=== PATIENT | male | born 1965 | race Caucasian/White ===

== ENCOUNTER 2021-04-18 08:47 | Emergency (ER) | payer OTHER ==
[2021-04-18] MEDS ORDERED: Meclizine 25 MG Tab PO ONE (09:58)
--- NOTE | 2021-04-18 10:01 | EDM.PDOC ---
ED HPI GENERAL MEDICAL PROBLEM - General Chief Complaint: Neuro Symptoms/Deficits Stated Complaint: DIZZY Time Seen by Provider: 04/18/21 09:53 Source of Information: Reports: Patient, RN Notes Reviewed History Limitations: Reports: No Limitations - History of Present Illness INITIAL COMMENTS - FREE TEXT/NARRATIVE: 56-year-old gentleman presents emergency department day complaint of dizziness states been dizzy for the last couple days he is fine if he does not move his head however if he has head movement the dizziness increases does feel little nauseated with the movement he can ambulate but he has not fallen down, feels fine at rest when he is lying down - Related Data Allergies Allergy/AdvReac Type Severity Reaction Status Date / Time No Known Allergies Allergy Verified 05/28/15 05:23 Home Meds: Home Meds Aspirin [Low Dose Aspirin EC] 81 mg PO DAILY 05/28/15 [History] Insulin Aspart [NovoLOG] 12 unit SQ TIDAC 05/28/15 [History] Insulin Glarg,Human.Rec.Analog [Lantus] 22 unit SQ BID 05/28/15 [History] Lisinopril 10 mg PO DAILY 05/28/15 [History] Rosuvastatin [Crestor] 20 mg PO DAILY 05/28/15 [History] metFORMIN [Glucophage XR] 250 mg PO BID 05/28/15 [History] Calcium Carb, Citrate/Vit D3 [Calcium + D3 ER Tablet] 1 tab PO BID 04/18/21 [History] Iron,Carbonyl/Vit C/Vit B12/Fa [Iron 100 Plus Tablet] 1 tab PO DAILY 04/18/21 [History] Past Medical History HEENT History: Reports: Cataract Other Gastrointestinal History: RUQ pain on and off since February. RAQUEL Endocrine/Metabolic History: Reports: Diabetes, Type II Hematologic History: Reports: Anemia, Iron Deficiency - Infectious Disease History Infectious Disease History: Reports: Chicken Pox - Past Surgical History GI Surgical History: Reports: Colonoscopy Social & Family History - Tobacco Use Tobacco Use Status *Q: Current Every Day Tobacco User Years of Tobacco use: 30 Packs/Tins Daily: 1 - Caffeine Use Caffeine Use: Reports: Soda - Recreational Drug Use Recreational Drug Use: No ED ROS GENERAL - Review of Systems Review Of Systems: See Below Constitutional: Reports: No Symptoms HEENT: Reports: Vertigo Respiratory: Reports: No Symptoms Cardiovascular: Reports: No Symptoms GI/Abdominal: Reports: Nausea ED EXAM, DIZZINESS - Physical Exam Exam: See Below Text/Narrative:: Head impulse test: Corrective saccades is positive when head turned to the bilateral Nystagmus: unidirectional, horizontal 0-beating nystagmus Skew deviation: grossly absent Exam Limited By: No Limitations General Appearance: Alert, WD/WN, No Apparent Distress Eye Exam: Bilateral Eye: EOMI, Normal Inspection, PERRL Ears: Normal External Exam, Normal Canal, Hearing Grossly Normal, Normal TMs Head Exam: Atraumatic, Normocephalic Vertigo: worsens with head to L, worsens with head to R, reproducible. No: reversible, constant Neck: Normal Inspection, Supple, Non-Tender, Full Range of Motion Respiratory/Chest: No Respiratory Distress, Lungs Clear, Normal Breath Sounds, No Accessory Muscle Use, Chest Non-Tender Cardiovascular: Regular Rate, Rhythm, No Murmur Neurological: Alert, Normal Mood/Affect, CN II-XII Intact, No Motor/Sensory Deficits #1 Interpretation EKG Date: 04/18/21 Time: 11:18 Rhythm: NSR [place]: Normal P-Wave: Present QRS: Normal ST-T: Normal QT: Normal Comparison: NA - No Prior EKG Course - Vital Signs Last Recorded V/S: Last Vital Signs Temp 97.7 F 04/18/21 12:42 Pulse 60 04/18/21 12:42 Resp 16 04/18/21 12:42 BP 115/72 04/18/21 12:42 Pulse Ox 99 04/18/21 12:42 - Orders/Labs/Meds Orders: Active Orders 24 hr Category Date Time Status EKG Documentation Completion [RC] ASDIRECTED Care 04/18/21 11:05 Active Peripheral IV Care [RC] . DIRECTED Care 04/18/21 11:04 Active Sodium Chloride 0.9% [Normal Saline] 1,000 ml Med 04/18/21 11:15 Active IV ASDIRECTED Sodium Chloride 0.9% [Saline Flush] Med 04/18/21 11:04 Active 10 ml FLUSH ASDIRECTED PRN Peripheral IV Insertion Adult [OM.PC] Urgent Oth 04/18/21 11:04 Ordered EKG 12 Lead [EK] Stat Ther 04/18/21 11:04 Ordered Medication Orders Sodium Chloride (Normal Saline) 1,000 mls @ 500 mls/hr IV ASDIRECTED GABRIEL Last Admin: 04/18/21 11:22 Dose: 500 mls/hr Documented by: DEMETRIA Sodium Chloride (Sodium Chloride 0.9% 10 Ml Syringe) 10 ml FLUSH ASDIRECTED PRN PRN Reason: Keep Vein Open Last Admin: 04/18/21 11:29 Dose: 10 ml Documented by: DEMETRIA Labs: Laboratory Tests 04/18/21 04/18/21 04/18/21 Range/Units 11:22 11:22 11:22 WBC 10.0 (4.5-11.0) K/uL RBC 5.63 (4.30-5.90) M/uL Hgb 16.7 H (12.0-15.0) g/dL Hct 49.0 (40.0-54.0) % MCV 87 (80-98) fL MCH 30 (27-31) pg MCHC 34 (32-36) % Plt Count 262 (150-400) K/uL Neut % (Auto) 75.1 H (36-66) % Lymph % (Auto) 15.9 L (24-44) % [place] % (Auto) 7.8 H (2-6) % Eos % (Auto) 1.0 L (2-4) % Baso % (Auto) 0.2 (0-1) % Sodium 137 L (140-148) mmol/L Potassium 4.5 (3.6-5.2) mmol/L Chloride 101 (100-108) mmol/L Carbon Dioxide 30 (21-32) mmol/L Anion Gap 10.5 (5.0-14.0) mmol/L BUN 18 (7-18) mg/dL Creatinine 0.9 (0.8-1.3) mg/dL Est Cr Clr Drug Dosing 86.56 mL/min Estimated GFR (MDRD) > 60 (>60) Glucose 235 H (74-106) mg/dL Lactic Acid 0.9 (0.4-2.0) mmol/L Calcium 8.7 (8.5-10.1) mg/dL Total Bilirubin 0.3 (0.2-1.0) mg/dL AST 23 (15-37) U/L ALT 42 (12-78) U/L Alkaline Phosphatase 82 (46-116) U/L Troponin I < 0.017 (0.000-0.056) ng/mL Total Protein 7.4 (6.4-8.2) g/dL Albumin 3.7 (3.4-5.0) g/dL Globulin 3.7 H (2.3-3.5) g/dL Albumin/Globulin Ratio 1.0 L (1.2-2.2) Meds: Medications Generic Name Dose Route Start Last Admin Trade Name Freq PRN Reason Stop Dose Admin Sodium Chloride 1,000 mls @ 500 mls/hr 04/18/21 11:15 04/18/21 11:22 Normal Saline IV 500 mls/hr ASDIRECTED GABRIEL Administration Sodium Chloride 10 ml 04/18/21 11:04 04/18/21 11:29 Sodium Chloride 0.9% 10 Ml Syringe FLUSH 10 ml ASDIRECTED PRN Administration Keep Vein Open Discontinued Medications Generic Name Dose Route Start Last Admin Trade Name Freq PRN Reason Stop Dose Admin Sodium Chloride 100 mls @ 3.5 mls/sec 04/18/21 11:30 04/18/21 12:28 Normal Saline IV 04/18/21 11:31 4 mls/sec ASDIRECTED GABRIEL Administration Iopamidol 100 ml 04/18/21 11:30 04/18/21 12:28 Iopamidol 755 Mg/Ml 100 Ml Bottle IV 04/18/21 11:31 100 ml . DIRECTED GABRIEL Administration Meclizine HCl 25 mg 04/18/21 09:58 04/18/21 10:04 Meclizine 25 Mg Tab PO 04/18/21 09:59 25 mg ONETIME ONE Administration Sodium Chloride 10 ml 04/18/21 11:26 04/18/21 12:28 Sodium Chloride 0.9% 10 Ml Syringe FLUSH 04/18/21 11:27 10 ml ONETIME ONE Administration Departure - Departure Time of Disposition: 12:55 Disposition: Home, Self-Care 01 Condition: Fair Clinical Impression: Vertigo - Discharge Information Instructions: Vertigo, [id number] Referrals: John Nova MD [Primary Care Provider] - Forms: ED Department Discharge Additional Instructions: Try the meclizine for the next couple days, please follow-up with your primary care in the next 3 to 5 days for further evaluation call return to the emergency department worsening symptoms Sepsis Event Note (ED) - Evaluation Sepsis Screening Result: No Definite Risk - Focused Exam Vital Signs: Vital Signs Temp Pulse Resp BP Pulse Ox 04/18/21 12:42 97.7 F 60 16 115/72 99 04/18/21 09:11 97.6 F 86 16 118/86 93 L - My Orders Last 24 Hours: My Active Orders 04/18/21 11:04 Peripheral IV Care [RC] . DIRECTED Sodium Chloride 0.9% [Saline Flush] 10 ml FLUSH ASDIRECTED PRN Peripheral IV Insertion Adult [OM.PC] Urgent EKG 12 Lead [EK] Stat 04/18/21 11:05 EKG Documentation Completion [RC] ASDIRECTED 04/18/21 11:15 Sodium Chloride 0.9% [Normal Saline] 1,000 ml IV ASDIRECTED - Assessment/Plan Last 24 Hours: My Active Orders 04/18/21 11:04 Peripheral IV Care [RC] . DIRECTED Sodium Chloride 0.9% [Saline Flush] 10 ml FLUSH ASDIRECTED PRN Peripheral IV Insertion Adult [OM.PC] Urgent EKG 12 Lead [EK] Stat 04/18/21 11:05 EKG Documentation Completion [RC] ASDIRECTED 04/18/21 11:15 Sodium Chloride 0.9% [Normal Saline] 1,000 ml IV ASDIRECTED Plan: Assessment Acuity = acute Site and laterality = vertigo Etiology = unknown Manifestations = none Location of injury = Home Lab values = CBC, CMP, troponin all within normal limits CT head CTA also unremarkable Plan He had minimal improvement with meclizine will go ahead and try this at home have him follow-up with his primary care in the next 3 to 5 days if not better This note was dictated using [employer] voice recognition software please call with any questions on syntax or grammar.
[2021-04-18] MEDS ORDERED: Sodium Chloride 0.9% 10 ML Syringe FLUSH PRN (11:04)
[2021-04-18] MEDS ORDERED: Sodium Chloride 0.9% 1,000 ML IV SCH (11:15)
[2021-04-18] MEDS ORDERED: Sodium Chloride 0.9% 10 ML Syringe FLUSH ONE (11:26)
[2021-04-18] MEDS ORDERED: Iopamidol 755 Mg/ML 100 ML Bottle IV SCH (11:30)
[2021-04-18] MEDS ORDERED: Sodium Chloride 0.9% 100 ML IV SCH (11:30)
--- NOTE | 2021-04-18 12:39 | CRLCT ---
For Patients: As a result of the Century Cures Act, medical imaging exams and procedure reports are released immediately into your electronic medical record. You may view this report before your referring provider. If you have questions, please contact your health care provider. INDICATION: Dizziness. TECHNIQUE: After standard noncontrast head CT, high resolution axial CT images acquired through the head and neck following rapid intravenous administration of iodinated contrast. Multiplanar MIPS of cranial and cervical vasculature performed. FINDINGS: Noncontrast head CT: There is no intracranial hemorrhage or fluid collection. The [place]-white matter differentiation is maintained. The ventricles are of normal morphology. The basal cisterns are clear. CTA head: There is normal filling of the intracranial vasculature; i.e. there is no large vessel occlusion or significant intracranial stenosis. There is no cerebral aneurysm or evidence for vascular malformation. CTA neck: There is severe tortuosity of the internal carotid arteries with 360 degree loops in the mid cervical vasculature. There is no evidence for dissection. There is atherosclerotic plaque at the origin of the left ICA resulting in a mild stenosis, much less than 50 percent NASCET criteria. There is no significant vertebral artery stenosis or dissection. The soft tissues of the neck are within normal limits. The cervical spine is in normal alignment. Degenerative changes are noted in the cervical spine. The lung apices are clear. IMPRESSION: No acute intracranial abnormality at CT/CTA. Severe tortuosity of the internal carotid arteries. Mild left ICA origin stenosis, much less than 50 percent by NASCET criteria. Andriy Vergara MD [facility] Please note that all CT scans at this facility use dose modulation, iterative reconstruction, and/or weight-based dosing when appropriate to reduce radiation dose to as low as reasonably achievable. Dictated by Andriy Vergara MD @ 04/18/2021 9:20:[address] Andriy Vergara @ Apr 18 2021 9:20PM
--- NOTE | 2021-04-18 12:43 | CRLCT ---
For Patients: As a result of the Century Cures Act, medical imaging exams and procedure reports are released immediately into your electronic medical record. You may view this report before your referring provider. If you have questions, please contact your health care provider. INDICATION: Dizziness. TECHNIQUE: CT of the head without contrast. Coronal and sagittal reformats are included. COMPARISON: None. FINDINGS: No CT evidence of acute cortical infarct. No loss of lay white matter differentiation. No hyperdense vessels to suggest intracranial thrombus. No acute intracranial hemorrhage. No mass effect or midline shift. No hydrocephalus or extra-axial collections. White matter is within normal limits for age. No acute osseous abnormalities. Mastoid air cells and paranasal sinuses are clear. Normal soft tissues. IMPRESSION: IMPRESSION:1. No CT evidence of acute cortical infarct. No acute intracranial hemorrhage. No other acute intracranial findings. Please note that all CT scans at this facility use dose modulation, iterative reconstruction, and/or weight-based dosing when appropriate to reduce radiation dose to as low as reasonably achievable. Dictated by Viecnte Erwin MD @ 04/18/2021 12:41:[address] Vicente Erwin @ Apr 18 2021 12:41PM
[2021-04-18 12:45] VITALS: BP 115/72; PULSE 60
== END 2021-04-18 13:15 | disposition home or self-care (01) ==
LOC: JP.ED 08:47
DX: R42 Dizziness and giddiness (principal); E11.9 Type 2 diabetes mellitus without complications; Z79.82 Long term (current) use of aspirin; Z79.4 Long term (current) use of insulin; Z79.899 Other long term (current) drug therapy; Z72.0 Tobacco use
CPT/HCPCS: 36415; 70450; 70496; 70498; 80053; 83605; 84484; 85025; 93005; 99284; A9270; J7030; Q9967